=== PATIENT | female | born 1980 | race Caucasian/White ===

== ENCOUNTER 2017-03-28 20:00 | Emergency (ER) | payer MEDICAID ==
[2017-03-28 21:32] LABS: BASO % 0.3 % (0-6); EOS % 1.9 % (0-6); GRAN % 64.5 % (47-80); HEMATOCRIT 43.1 % (35.0-47.0); HEMOGLOBIN 13.5 gm/dl (11.6-16.0); LYMPH % 26.3 % (16-45); MEAN CELL VOLUME 81.2 fl (81-97); MEAN CORPUSCULAR HEMOGLOBIN 25.4 pg (27-33); MEAN CORPUSCULAR HGB CONC 31.3 g/dl (32-36); MEAN PLATELET VOLUME 10.6 fl (7.4-10.4); PLATELET COUNT 324 K/uL (130-400); RED BLOOD COUNT 5.31 M/uL (3.80-5.40); RED CELL DISTRIBUTION WIDTH 15.4 % (11.5-14.5); WHITE BLOOD COUNT W/O DIFF 11.5 K/uL (4.2-12.2)
[2017-03-28 21:33] LABS: URINE APPEARANCE CLEAR; URINE BILIRUBIN NEGATIVE (NEGATIVE); URINE BLOOD NEGATIVE (NEGATIVE); URINE COLOR YELLOW; URINE GLUCOSE (UA) NEGATIVE (NEGATIVE); URINE KETONE NEGATIVE (NEGATIVE); URINE LEUKOCYTE ESTERASE NEGATIVE (NEGATIVE); URINE NITRITE NEGATIVE (NEGATIVE); URINE PROTEIN NEGATIVE (NEGATIVE); URINE UROBILINOGEN 0.2 E.U./dL (0.20 - 1.00)
[2017-03-28 21:36] LABS: HCG,QUALITATIVE URINE NEGATIVE (NEGATIVE)
[2017-03-28 21:43] LABS: ANION GAP 8.7 (7-16); BLOOD UREA NITROGEN 6 mg/dL (7-17); CARBON DIOXIDE 22.3 mmol/L (22-30); CREATININE 0.7 mg/dL (0.52-1.04); EST GLOMERULAR FILTRATION RATE > 60 ml/min; GLUCOSE,RANDOM 87 mg/dL (70-110)
[2017-03-28] MEDS ORDERED: ACETAMINOPHEN 1,000 MG/100 ML BTL IVPB ONE (22:08)
--- NOTE | 2017-03-28 22:41 | Emergency Department Record ---
History of Present Illness - General Chief complaint: Abscess Stated complaint: LUMP IN VAGINAL AREA Time Seen by Provider: 03/28/17 21:04 Source: Patient Mode of Arrival: Ambulatory Limitations: No limitations - History of Present Illness Initial comments: pt has been having mild swelling and tenderness in the vaginal area for 3 weeks which got suddenly worse today and now is excruciating complaint: Abscess/boil Onset/Timin -: Days(s) Patient Tetanus UTD (within 5 yrs): No Location: Genitals Severity scale (1-10): 7 Quality: Stabbing Consistency: Constant Improves with: Cold therapy Worsens with: Palpation, Movement Context: None Associated symptoms: Denies other symptoms Treatments Prior to Arrival: NSAID - Related Data Home Medications Medication Instructions Recorded Confirmed Last Taken No Home Med [NO HOME MEDS] 03/28/17 03/28/17 Unknown Allergies Allergy/AdvReac Type Severity Reaction Status Date / Time lamotrigine [From Lamictal] Allergy Severe RASH Verified 10/02/16 20:14 citalopram hydrobromide Allergy Mild RASH Verified 10/02/16 20:14 [From Celexa] Travel Screening - Travel/Exposure Within Last 30 Days Have you traveled within the last 30 days?: No - Travel Symptoms Symptom Screening: None Review of Systems Reviewed: No additional complaints except as noted below Constitutional: Reports: As per HPI. Denies: Chills, Fever, Malaise, Night sweats, Weakness, Weight change Eyes: Reports: As per HPI. Denies: Eye discharge, Eye pain, Photophobia, Vision change ENT: Reports: As per HPI. Denies: Congestion, Dental pain, Ear pain, Epistaxis , Hearing loss, Throat pain Respiratory: Reports: As per HPI. Denies: Cough, Dyspnea, Hemoptysis, Stridor, Wheezes Cardiovascular: Reports: As per HPI. Denies: Arrhythmia, Chest pain, Dyspnea on exertion, Edema, Murmurs, Orthopnea, Palpitations, Paroxysmal nocturnal dyspnea, Rheumatic Fever, Syncope Endocrine: Reports: As per HPI. Denies: Fatigue, Heat or cold intolerance, Polydipsia, Polyuria Gastrointestinal: Reports: As per HPI. Denies: Abdominal pain, Constipation, Diarrhea, Hematemesis, Hematochezia, Melena, Nausea, Vomiting Genitourinary: Reports: As per HPI. Denies: Abnormal menses, Discharge, Dyspareunia, Dysuria, Frequency, Hematuria, Incontinence, Retention, Urgency Musculoskeletal: Reports: As per HPI. Denies: Arthralgia, Back pain, Gout, Joint swelling, Myalgia, Neck pain Skin: Reports: As per HPI. Denies: Bruising, Change in color, Change in hair/ nails, Lesions, Pruritus, Rash Neurological: Reports: As per HPI. Denies: Abnormal gait, Confusion, Headache, Numbness, Paresthesias, Seizure, Tingling, Tremors, Vertigo, Weakness Psychiatric: Reports: As per HPI. Denies: Anxiety, Auditory hallucinations, Depression, Homicidal thoughts, Suicidal thoughts, Visual hallucinations Hematological/Lymphatic: Reports: As per HPI. Denies: Anemia, Blood Clots, Easy bleeding, Easy bruising, Swollen glands Past Medical History - SOCIAL HISTORY Smoking Status: Current every day smoker - RESPIRATORY Hx Respiratory Disorders: No - CARDIOVASCULAR Hx Cardio Disorders: No - NEURO Hx Neuro Disorders: No - GI Hx GI Disorders: No - Hx Genitourinary Disorders: No - ENDOCRINE Hx Endocrine Disorders: No - MUSCULOSKELETAL Hx Musculoskeletal Disorders: No - PSYCH Hx Psych Problems: Yes Hx Anxiety: Yes Hx Depression: Yes - HEMATOLOGY/ONCOLOGY Hx Hematology/Oncology Disorders: No Family Medical History Any Significant Family History?: Yes Hx Cancer: Father Physical Exam - General General Appearance: Alert, Oriented x3, Cooperative, Mild distress - Head Head exam: Normal inspection - Eye Eye exam: Normal appearance, PERRL, EOMI Pupils: Normal accommodation - ENT ENT exam: Normal exam, Mucous membranes moist, Normal external ear exam, Normal orophraynx Ear exam: Normal external inspection. negative: External canal tenderness Nasal Exam: Normal inspection. negative: Discharge, Sinus tenderness Mouth exam: Normal external inspection, Tongue normal Teeth exam: Normal inspection. negative: Dental caries Throat exam: Normal inspection. negative: Tonsillar erythema, Tonsillar exudate - Neck Neck exam: Normal inspection, Full ROM. negative: Tenderness - Respiratory Respiratory exam: Normal lung sounds bilaterally. negative: Respiratory distress - Cardiovascular Cardiovascular Exam: Regular rate, Normal rhythm, Normal heart sounds - GI/Abdominal GI/Abdominal exam: Soft, Normal bowel sounds. negative: Tenderness - Rectal Rectal exam: Deferred - exam: Abnormal external exam, Other (marked swelling of labia w fluctuence) - Extremities Extremities exam: Normal inspection, Full ROM, Normal capillary refill. negative: Tenderness - Back Back exam: Reports: Normal inspection, Full ROM. 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 and possibly surgeon Medical Decision Making - Lab Data Result diagrams: 03/28/17 21:24 03/28/17 21:24 Lab Results 03/28/17 03/28/17 03/28/17 Range/Units 21:24 21:24 21:24 WBC 11.5 (4.2-12.2) K/uL RBC 5.31 (3.80-5.40) M/uL Hgb 13.5 (11.6-16.0) gm/dl Hct 43.1 (35.0-47.0) % MCV 81.2 (81-97) fl MCH 25.4 L (27-33) pg MCHC 31.3 L (32-36) g/dl RDW 15.4 H (11.5-14.5) % Plt Count 324 (130-400) K/uL MPV 10.6 H (7.4-10.4) fl Gran % 64.5 (47-80) % Lymphocytes % 26.3 (16-45) % Monocytes % 7.0 (0-9) % Eosinophils % 1.9 (0-6) % Basophils % 0.3 (0-6) % Sodium 139 (136-145) mmol/L Potassium 3.6 (3.5-5.1) mmol/L Chloride 108 H (98-107) mmol/L Carbon Dioxide 22.3 (22-30) mmol/L Anion Gap 8.7 (7-16) BUN 6 L (7-17) mg/dL Creatinine 0.7 (0.52-1.04) mg/dL Estimated GFR > 60 ml/min Random Glucose 87 (70-110) mg/dL Calcium 8.8 (8.5-10.1) mg/dL Urine Color Yellow Urine Appearance Clear Urine pH 6.0 (5.0-8.0) Ur Specific Gaffney <= 1.005 (1.002-1.030) Urine Protein Negative (NEGATIVE) Urine Glucose (UA) Negative (NEGATIVE) Urine Ketones Negative (NEGATIVE) Urine Blood Negative (NEGATIVE) Urine Nitrite Negative (NEGATIVE) Urine Bilirubin Negative (NEGATIVE) Urine Urobilinogen 0.2 (0.20 - 1.00) E.U./dL Ur Leukocyte Esterase Negative (NEGATIVE) Urine HCG, Qual Negative (NEGATIVE) Disposition Disposition: Transfer Clinical Impression: Mamadou duct, cyst, Abscess of vagina Disposition: Acute Care Hospital Transfer Transfer To: [facility] Reason For Transfer: needs gyecology Accepting Physician: lane ramsey and mohit Time Discussed w/Accepting Physician: 22:49 Forms: Patient Portal Access
[2017-03-28] MEDS ORDERED: HYDROMORPHONE HCL 1 MG/ML CPJ IVP ONE (23:13)
[2017-03-28] MEDS ORDERED: ONDANSETRON HCL IV 4 MG/2 ML VIAL IVP ONE (23:14)
== END 2017-03-28 23:37 | disposition short-term general hospital (02) ==
LOC: ER 20:00
DX: N76.0 Acute vaginitis (principal); Q52.4 Other congenital malformations of vagina
CPT/HCPCS: 99285 ×2; 96365; 96375; 85025; 80048; 81003; 81025; 72193; Q9967; J2405; J1170